=== PATIENT | male | born 1960 | race Caucasian/White ===

== ENCOUNTER 2017-09-25 19:46 | Emergency (ER) | payer OTHER ==
[~2017-09-25 19:46] MED LIST: Z.0.NO CURRENT MEDS
[2017-09-25 20:27] VITALS: BP 180/81; PULSE 128; RESP 20; TEMP 98.9; O2SAT 97
[2017-09-25 20:47] LABS: AST (GOT) 13 U/L (15-37); BICARBONATE 21.4 MEQ/L (21.0-32.0); BLOOD UREA NITROGEN 12 MG/DL (7-18); CALCIUM 8.6 MG/DL (8.5-10.1); CHLORIDE 114 MEQ/L (98-107); CREATININE 0.81 MG/DL (0.60-1.30); GLOMERULAR FILTRATION RATE 99 ML/MIN (>89); GLUCOSE,RANDOM 103 MG/DL (74-106); SODIUM (NA) 146 MEQ/L (136-145)
[2017-09-25 20:48] LABS: ALT (GPT) 11 U/L (12-78)
[2017-09-25 20:50] LABS: ACETAMINOPHEN LESS THAN 2.0 MCG/ML (10.0-30.0); ALKALINE PHOSPHATASE 125 U/L (45-117); TOTAL BILIRUBIN ADULT 0.2 MG/DL (0.2-1.0); TOTAL PROTEIN 8.2 GM/DL (6.4-8.2)
[2017-09-25 21:01] LABS: AUTOMATED NEUTROPHIL # 7.3 TH/MM3 (1.8-7.7); BASOPHIL # 0.1 TH/MM3 (0-0.2); BASOPHIL % 0.9 % (0.0-2.0); EOSINOPHIL % 0.3 % (0.0-4.0); HEMATOCRIT 44.9 % (39.0-51.0); HEMOGLOBIN 15.8 GM/DL (13.0-17.0); LYMPH % 10.7 % (9.0-44.0); MEAN CELL VOLUME 95.4 FL (80.0-100.0); MEAN CORPUSCULAR HEMOGLOBIN 33.7 PG (27.0-34.0); MEAN CORPUSCULAR HGB CONC 35.3 % (32.0-36.0); MONO % 7.5 % (0.0-8.0); MONOCYTE # 0.7 TH/MM3 (0-0.9); NEUT % 80.6 % (16.0-70.0); PLATELET COUNT 131 TH/MM3 (150-450); RED BLOOD COUNT 4.71 MIL/MM3 (4.50-5.90); RED CELL DISTRIBUTION WIDTH 14.3 % (11.6-17.2); WHITE BLOOD COUNT 9.1 TH/MM3 (4.0-11.0)
--- NOTE | 2017-09-25 22:03 | PD ---
HPI Chief Complaint: Psychiatric Symptoms Time Seen by Provider: 21:23 Travel History International Travel<30 days: No Contact w/Intl Traveler<30days: No Traveled to known affect area: No History of Present Illness HPI 57-year-old white male presents to emergency department under Cope act by PD. The patient states that he is going through the process of being evicted from his trailer. He had dissipated off. He had spent $29,000 on this trailer in a skilled nursing facility. He states that he was told that his financial score is not high enough to stay. He has stated to his significant other this evening that he was feeling depressing having suicidal thoughts. He admits to drinking alcohol. Patient denies any suicidal or homicidal ideation. He states that he does not suffer from any mental illness. He is merely upset regarding this problem. [facility] Past Medical History Narrative Medical Chronic back pain Neurologic: Yes (5 RUPTURED DISCS AND NERVE DAMAGE ) Tetanus Vaccination: < 5 Years Social History Alcohol Use: Yes (APPROX. DAYS A WEEK) Tobacco Use: Yes (PACK PER DAY) Substance Use: Yes (alcohol) Allergies-Medications (Allergen,Severity, Reaction): Coded Allergies: No Known Allergies (Verified Allergy, Mild, 07/06/06) Reported Meds & Prescriptions Reported Meds & Active Scripts Active Reported No Current Meds (Miscellaneous Medication) Misc Review of Systems Except as stated in HPI: all other systems reviewed are Neg Psychiatric: Positive: Substance Abuse, No: Anxiety, Depression, Suicidal Ideations, Disorder of Thought, Mood Disorder, Homicidal Ideation Physical Exam Narrative GENERAL: Well-nourished, well-developed patient. SKIN: Warm and dry. HEAD: Normocephalic and atraumatic. EYES: No scleral icterus. No injection or drainage. ENT: No nasal drainage noted. Mucous membranes pink. Airway patent. NECK: Supple, trachea midline. Moves head freely without obvious discomfort. CARDIOVASCULAR: Regular rate and rhythm without murmurs, gallops, or rubs. RESPIRATORY: Breath sounds equal bilaterally. No accessory muscle use. GASTROINTESTINAL: Abdomen soft, non-tender, nondistended. EXTREMITIES: No cyanosis or edema. BACK: Nontender without obvious deformity. No CVA tenderness. NEURO: Patient is alert and oriented. no sensorimotor deficits. Nonfocal. Normal speech. PSYCH: No delusions. No auditory or visual hallucinations. Data Data Last Documented VS Vital Signs Date Time Temp Pulse Resp B/P (MAP) Pulse Ox O2 Delivery O2 Flow Rate FiO2 09/25/17 20:27 98.9 128 20 180/81 (114) 97 Orders Orders Complete Blood Count With Diff (09/25/17 19:58) Comprehensive Metabolic Panel (09/25/17 19:58) Alcohol (Ethanol) (09/25/17 19:58) Salicylates (Aspirin) (09/25/17 19:58) Tylenol (Acetaminophen) (09/25/17 19:58) Drug Screen, Random Urine (09/25/17 19:58) Psych Screen (09/25/17 19:58) Ed Discharge Order (09/25/17 22:00) Labs Laboratory Tests Test 09/25/17 20:05 09/25/17 20:15 Urine Opiates Screen NEG Urine Barbiturates Screen NEG Urine Amphetamines Screen NEG Urine Benzodiazepines Screen NEG Urine Cocaine Screen NEG Urine Cannabinoids Screen NEG White Blood Count 9.1 TH/MM3 Red Blood Count 4.71 MIL/MM3 Hemoglobin 15.8 GM/DL Hematocrit 44.9 % Mean Corpuscular Volume 95.4 FL Mean Corpuscular Hemoglobin 33.7 PG Mean Corpuscular Hemoglobin Concent 35.3 % Red Cell Distribution Width 14.3 % Platelet Count 131 TH/MM3 Mean Platelet Volume 8.0 FL Neutrophils (%) (Auto) 80.6 % Lymphocytes (%) (Auto) 10.7 % Monocytes (%) (Auto) 7.5 % Eosinophils (%) (Auto) 0.3 % Basophils (%) (Auto) 0.9 % Neutrophils # (Auto) 7.3 TH/MM3 Lymphocytes # (Auto) 1.0 TH/MM3 Monocytes # (Auto) 0.7 TH/MM3 Eosinophils # (Auto) 0.0 TH/MM3 Basophils # (Auto) 0.1 TH/MM3 CBC Comment DIFF FINAL Differential Comment Blood Urea Nitrogen 12 MG/DL Creatinine 0.81 MG/DL Random Glucose 103 MG/DL Total Protein 8.2 GM/DL Albumin 4.0 GM/DL Calcium Level 8.6 MG/DL Alkaline Phosphatase 125 U/L Aspartate Amino Transf (AST/SGOT) 13 U/L Alanine Aminotransferase (ALT/SGPT) 11 U/L Total Bilirubin 0.2 MG/DL Sodium Level 146 MEQ/L Potassium Level 3.8 MEQ/L Chloride Level 114 MEQ/L Carbon Dioxide Level 21.4 MEQ/L Anion Gap 11 MEQ/L Estimat Glomerular Filtration Rate 99 ML/MIN Salicylates Level 18.7 MG/DL Acetaminophen Level LESS THAN 2.0 MCG/ML Ethyl Alcohol Level 123 MG/DL MDM Medical Decision Making Medical Screen Exam Complete: Yes Emergency Medical Condition: Yes Medical Record Reviewed: Yes Differential Diagnosis MDM: High Differential diagnoses: Schizophrenia, schizoaffective disorder, bipolar, anxiety, depression, adjustment reaction, mood disorder NOS, ODD, depressive disorder NOS, dementia, dementia with agitation, psychosis NOS, substance induced mood disorder, DMDD, Asperger syndrome, infection,electrolyte abnormality, malingering. Narrative Course Mental health screening discussed with the patient. Psychiatric screen ordered. The patient is not a threat to himself or others. He does not meet criteria under Cope act. The Cope act will be lifted. The patient feels comfortable going home. This is adjustment reaction Diagnosis Primary Impression: Adjustment reaction Qualified Codes: F43.21 - Adjustment disorder with depressed mood Additional Impression: Alcohol intoxication Qualified Codes: F10.920 - Alcohol use, unspecified with intoxication, uncomplicated Patient Instructions: General Instructions Additional Instructions: Rest. Follow-up with the recommendations of the psych screener. Med/Other Pt SpecificInfo: No Meds Exist/No RX given Disposition: 01 DISCHARGE HOME Condition: Stable Derrek Rapp Sep 25, 2017 22:03
--- NOTE | 2017-09-25 22:18 | PD ---
Data Data Last Documented VS Vital Signs Date Time Temp Pulse Resp B/P (MAP) Pulse Ox O2 Delivery O2 Flow Rate FiO2 09/25/17 22:24 09/25/17 20:27 98.9 128 20 97 Orders Orders Complete Blood Count With Diff (09/25/17 19:58) Comprehensive Metabolic Panel (09/25/17 19:58) Alcohol (Ethanol) (09/25/17 19:58) Salicylates (Aspirin) (09/25/17 19:58) Tylenol (Acetaminophen) (09/25/17 19:58) Drug Screen, Random Urine (09/25/17 19:58) Psych Screen (09/25/17 19:58) Ed Discharge Order (09/25/17 22:00) Labs Laboratory Tests Test 09/25/17 20:05 09/25/17 20:15 Urine Opiates Screen NEG Urine Barbiturates Screen NEG Urine Amphetamines Screen NEG Urine Benzodiazepines Screen NEG Urine Cocaine Screen NEG Urine Cannabinoids Screen NEG White Blood Count 9.1 TH/MM3 Red Blood Count 4.71 MIL/MM3 Hemoglobin 15.8 GM/DL Hematocrit 44.9 % Mean Corpuscular Volume 95.4 FL Mean Corpuscular Hemoglobin 33.7 PG Mean Corpuscular Hemoglobin Concent 35.3 % Red Cell Distribution Width 14.3 % Platelet Count 131 TH/MM3 Mean Platelet Volume 8.0 FL Neutrophils (%) (Auto) 80.6 % Lymphocytes (%) (Auto) 10.7 % Monocytes (%) (Auto) 7.5 % Eosinophils (%) (Auto) 0.3 % Basophils (%) (Auto) 0.9 % Neutrophils # (Auto) 7.3 TH/MM3 Lymphocytes # (Auto) 1.0 TH/MM3 Monocytes # (Auto) 0.7 TH/MM3 Eosinophils # (Auto) 0.0 TH/MM3 Basophils # (Auto) 0.1 TH/MM3 CBC Comment DIFF FINAL Differential Comment Blood Urea Nitrogen 12 MG/DL Creatinine 0.81 MG/DL Random Glucose 103 MG/DL Total Protein 8.2 GM/DL Albumin 4.0 GM/DL Calcium Level 8.6 MG/DL Alkaline Phosphatase 125 U/L Aspartate Amino Transf (AST/SGOT) 13 U/L Alanine Aminotransferase (ALT/SGPT) 11 U/L Total Bilirubin 0.2 MG/DL Sodium Level 146 MEQ/L Potassium Level 3.8 MEQ/L Chloride Level 114 MEQ/L Carbon Dioxide Level 21.4 MEQ/L Anion Gap 11 MEQ/L Estimat Glomerular Filtration Rate 99 ML/MIN Salicylates Level 18.7 MG/DL Acetaminophen Level LESS THAN 2.0 MCG/ML Ethyl Alcohol Level 123 MG/DL [facility] Supervised Visit with LIZETH: Yes Narrative Course Patient was independently seen and examined by me, patient appears to have had a disagreement with someone over the deed to his trailer today, unfortunately he has been evicted from his current domicile. Patient states he had some alcohol tonight and said some things that he did not mean, he is clinically sober at this time and has had ample time to metabolize his alcohol to a level that would deem him sober enough to drive a car while in the emergency department. He is going to call a cab home and adamantly denies any suicidal or homicidal ideation. He is calm and cooperative, he has no complaints and states he just wants to go home and if he is unable to go home he wants to rent a hotel room for the night so he can get some sleep. After lengthy conversation with him I agree that he is not a threat to himself nor others and does not have any criteria that meet medical emergency and no further workup is indicated at this time, I have lifted his Cope act, discussed with him return to ED criteria. He is stable for discharge per Diagnosis Primary Impression: Adjustment reaction Qualified Codes: F43.21 - Adjustment disorder with depressed mood Additional Impression: Alcohol intoxication Qualified Codes: F10.920 - Alcohol use, unspecified with intoxication, uncomplicated Patient Instructions: General Instructions Departure Forms: Tests/Procedures Additional Instruction: Rest. Follow-up with the recommendations of the psych screener. Disposition: 01 DISCHARGE HOME Condition: Stable Abdullahi Beltran MD Sep 25, 2017 22:18
== END 2017-09-25 22:25 | disposition home or self-care (01) ==
LOC: NEPJ 19:46
DX: F43.21 Adjustment disorder with depressed mood (principal); F10.920 Alcohol use, unspecified with intoxication, uncomplicated; F17.210 Nicotine dependence, cigarettes, uncomplicated; M54.9 Dorsalgia, unspecified; G89.29 Other chronic pain
CPT/HCPCS: 80053; 80307; 85025; 99284

== ENCOUNTER 2017-12-11 09:48 | Emergency (ER) | payer MEDICARE, MEDICAID ==
[~2017-12-11] VITALS: Ht 182.9 cm; Wt 94.1 kg
[2017-12-11 09:50] VITALS: BP 147/81; PULSE 95; RESP 16; TEMP 98.3; O2SAT 98
--- NOTE | 2017-12-11 10:21 | PD ---
HPI Chief Complaint: Numbness/Tingling Time Seen by Provider: 10:01 Travel History International Travel<30 days: No Contact w/Intl Traveler<30days: No Traveled to known affect area: No History of Present Illness HPI This is a 57-year-old male here with pins and needles sensation in his right third through fifth digits 5 weeks. Symptoms began after he fell from a standing position onto a flexed elbow. He denies weakness of the extremity. He reports the pins and needles sensation is worse with grasping and heavy lifting. No fever or chills. No headache, visual changes, or weakness of the lower extremity. Symptom severity is mild to moderate. Symptoms are alleviated with rest. PFSH Past Medical History Medical History: Denies Significant Hx Diminished Hearing: No Neurologic: Yes (5 RUPTURED DISCS AND NERVE DAMAGE ) Tetanus Vaccination: Unknown Past Surgical History Surgical History: No Previous Surgery Social History Alcohol Use: Yes (APPROX. DAYS A WEEK) Tobacco Use: Yes (PACK PER DAY) Substance Use: Yes (alcohol) Allergies-Medications (Allergen,Severity, Reaction): Coded Allergies: No Known Allergies (Verified Allergy, Mild, 12/11/17) Reported Meds & Prescriptions Reported Meds & Active Scripts Active Review of Systems Except as stated in HPI: all other systems reviewed are Neg General / Constitutional: No: Fever Eyes: No: Visual changes HENT: No: Headaches Cardiovascular: No: Chest Pain or Discomfort Respiratory: No: Shortness of Breath Gastrointestinal: No: Abdominal Pain Genitourinary: No: Dysuria Skin: No Rash Neurologic: No: Weakness Physical Exam Narrative GENERAL: Alert and well-appearing 57-year-old male. No distress. SKIN: Warm and dry. HEAD: Atraumatic. Normocephalic. EYES: Pupils equal and round. EOMs intact. No injection or drainage. NECK: Trachea midline. No cervical midline tenderness. CARDIOVASCULAR: Regular rate and rhythm. RESPIRATORY: No accessory muscle use. Clear to auscultation. Breath sounds equal bilaterally. GASTROINTESTINAL: Abdomen soft, non-tender, nondistended. Hepatic and splenic margins not palpable. MUSCULOSKELETAL: Extremities without clubbing, cyanosis, or edema. No obvious deformities. RUE: + Tenderness to the olecranon. Full range of motion of the elbow. Hand: Reported pins and needle sensation to the third through fifth digit. Normal sensation with sharp/dull discrimination. Equal hand grasp. Brisk cap refill NEUROLOGICAL: Awake and alert. No obvious cranial nerve deficits. Motor grossly within normal limits. Five out of 5 muscle strength in the arms and legs. Normal speech. Equal hand grasp PSYCHIATRIC: Appropriate mood and affect; insight and judgment normal. Data Data Last Documented VS Vital Signs Date Time Temp Pulse Resp B/P (MAP) Pulse Ox O2 Delivery O2 Flow Rate FiO2 12/11/17 09:59 16 12/11/17 09:50 98.3 95 147/81 (103) 98 Orders Orders Elbow, Complete (4 Vws) (12/11/17 ) [facility] Medical Decision Making Medical Screen Exam Complete: Yes Emergency Medical Condition: Yes Differential Diagnosis Elbow fracture, carpal tunnel, nerve contusion, CVA unlikely Narrative Course This is a 57-year-old male here with hand pain and mild paresthesia of the right hand after injury to the elbow 5 weeks ago. He has a normal neurologic exam. No focal neuro deficits. The extremity is neurovascularly intact. He has normal sensation with 2 point discrimination. Normal strength. X-rays negative for fracture. He is to follow-up with orthopedic Diagnosis Primary Impression: Contusion of ulnar nerve Qualified Codes: S54.01XA - Injury of ulnar nerve at forearm level, right arm , initial encounter Referrals: Trae Black MD Orthopedist Additional Instructions: Ibuprofen as needed for pain. Splint for comfort. Follow-up with orthopedic doctor Scripts No Active Prescriptions or Reported Meds Disposition: 01 DISCHARGE HOME Condition: Stable Mei Jesus December 11, 2017 10:21
--- NOTE | 2017-12-11 11:18 | RADRPT ---
EXAM DATE/TIME: 12/11/2017 10:30 [facility] COMPARISON: No previous studies available for comparison. INDICATIONS : Right elbow pain and tingling down right arm, no known injury. MEDICAL HISTORY : None. SURGICAL HISTORY : None. ENCOUNTER: Initial ACUITY: 1 month PAIN SCORE: 3/10 LOCATION: Right elbow FINDINGS: Multiple view examination of the right elbow demonstrates no soft tissue swelling, joint effusion, or fracture. The osseous structures are in normal alignment. Bony mineralization is normal. CONCLUSION: 1. Unremarkable radiographs of the right elbow. Venancio De Los Santos MD on December 11, 2017 at 11:12 Board Certified Radiologist. This report was verified electronically.
[2017-12-11] MEDS ORDERED: IBUP1TAB7 PO (11:26)
== END 2017-12-11 11:35 | disposition home or self-care (01) ==
LOC: PHEFT 09:48
DX: S60.221A Contusion of right hand, initial encounter (principal); F17.200 Nicotine dependence, unspecified, uncomplicated; W18.30XA Fall on same level, unspecified, initial encounter
CPT/HCPCS: 73080; 99283